=== PATIENT | female | born 1995 | race African-American/Black ===

== ENCOUNTER 2019-02-07 19:16 | Emergency (ER) | payer MEDICAID ==
[~2019-02-07] VITALS: Ht 160 cm; Wt 59.0 kg
[2019-02-07] MEDS ORDERED: FLUORESCEIN SODIUM 1MG/STRIP RIGHTEYE ONE (22:00)
[2019-02-07] MEDS ORDERED: TETRACAINE 0.5% OPHTH DROPS 4ML RIGHTEYE ONE (22:00)
[2019-02-07 23:34] VITALS: BP 122/97
== END 2019-02-07 23:35 | disposition home or self-care (01) ==
LOC: ER 20:09
DX: S05.01XA Injury of conjunctiva and corneal abrasion without foreign body, right eye, initial encounter (principal); X58.XXXA Exposure to other specified factors, initial encounter; Y93.89 Activity, other specified; Y92.018 Other place in single-family (private) house as the place of occurrence of the external cause
CPT/HCPCS: 99283